=== PATIENT | female | born 1975 | race Caucasian/White ===

== ENCOUNTER 2025-08-14 09:30 | Outpatient (AMB) | payer BC, SELFPAY ==
--- NOTE | 2025-08-14 09:37 | A.OFFVIS_ITS ---
Intake Visit Reasons: follow up Allergies No Known Allergies Allergy (Unverified 06/13/20 16:33) Medication List - Last Reconciled 08/14/25 by Tony Menjivar MD lorazepam 1 mg PO BEDTIME PRN 30 days ondansetron 4 mg PO Q8H PRN phentermine 37.5 mg PO DAILY rosuvastatin 10 mg PO DAILY spironolactone 100 mg PO QAM topiramate 50 mg PO BID 90 days zolpidem 10 mg PO BEDTIME PRN 30 days HPI Comments Details: %1 yr old woman with migraines, here for 6 monthly f/u. Migraines are under control. Usually triggered by too much stress and lack of sleep. Is now on Rosuvastatin. Undergoing w/u for kidneys and rheumatological w/u for abnormal labs and is very stressed about it. Not sleeping well. Had left knee meniscectomy on 04/25/24. Stage 4 arthritis. Seeing a therapist with her boyfriend. Shoulders and upper neck and back are sore and using a chiropractor. She tore her rotator cuffs and had rotator cuff surgery on the left in May 2020 and right on 09/10/20. Sleeping problems are better. 1-2 migraines / month, de pending upon stress and lack of sleep. Controlled in 1 hr with Excedrin migraine. No side effects. She has a history of migraine headaches that started in high school. They usually triggered by stress or bright lights. It is described as a generalized pressure in the head with nausea without vomiting as well as photophobia but can last for several hours. Rarely she's had to leave work because of the light sensitivity. She usually treats it by taking 2 Excedrin. She gets 5-6 hours of sleep and has a very busy schedule. [facility] Medical History (Updated 08/14/25 @ 09:41 by Tony Menjivar MD) Insomnia Mood disorder Anxiety Asthma Migraine Review of Systems Const Details: Sleep:Difficulty getting to sleepadmits.? Difficulty maintaining sleepadmits.? Urge to move legsdenies.? Teeth grindingdenies.? Shouting or Kicking during sleepdenies.? Abnormal behavior during sleepdenies.? Excessive sleepdenies.? Snoringdenies.? Daytime sleepinessdenies.General/Constitutional:Change in appetitedenies.? Chillsdenies.? Fatiguedenies.? Feverdenies.? Weight gainadmits .? Weight lossdenies.Ophthalmologic:Blurred visiondenies.? Diminished visual acuitydenies.ENT:Stuffinessdenies.? Decreased hearingdenies.? Dry mouthdenies.? Ear paindenies.? Nosebleeddenies.? Ringing in the earsdenies.? Sinus paindenies .? Sore throatdenies.? Swollen glandsdenies.Endocrine:Cold intolerancedenies.? Excessive thirstdenies.? Frequent urinationdenies.? Heat intolerancedenies. Respiratory:Shortness of breathdenies.? Chest paindenies.? Coughdenies.Breast :Breast lumpdenies.? Nipple dischargedenies.Cardiovascular:Chest pain at rest denies.? Chest pain with exertiondenies.? Claudicationdenies.? Dizzinessdenies.? Fluid accumulation in the legsdenies.? Irregular heartbeatdenies.? Palpitations denies.Gastrointestinal:Abdominal paindenies.? Constipationdenies.? Diarrhea denies.? Difficulty swallowingdenies.? Heartburndenies.? Nauseadenies.? Rectal bleedingdenies.Hematology:Easy bruisingdenies.? Prolonged bleedingdenies. Genitourinary:Frequent urinationdenies.? Urgencydenies.? Incontinencedenies.? Erectile Dysfunctiondenies.Musculoskeletal:Neck paindenies.? Back paindenies.? Muscle achesdenies.? Painful jointsdenies.? Sciaticadenies.? Weaknessdenies. Podiatric:Difficulty walkingdenies.? Foot numbnessdenies.Neurologic:Difficulty swallowingdenies.? Balance difficultydenies.? Coordinationnormal.? Difficulty speakingdenies.? Dizzinessdenies.? Faintingdenies.? Gait abnormalitydenies.? Headacheadmits.? Loss of strengthdenies.? Loss of use of extremitydenies.? Low back paindenies.? Memory lossdenies.? Seizuresdenies.? Ticsdenies.? Tingling /Numbnessdenies.? Transient loss of visiondenies.? Tremordenies.Psychiatric :Anxietyadmits.? Auditory/visual hallucinationsdenies.? Delusionsdenies.? Depressed mooddenies.? Stressorsadmits.? Substance abusedenies.? Suicidal thoughtsdenie Physical Exam Neuro Other: Neurological: Abnormal neurological findings:??none.?Mental Status:??alert and oriented X 3,?Normal attention, orientation, memory and affect.?Cranial Nerves:??Pupils are equal, round and reactive to light. Fundoscopy shows normal disc bilaterally. External occular muscles are intact. Visual morales are full, no ptosis. Face is symmetrical, no facial weakness or droop. Facial sensations are normal. Tongue protrudes in midline. Palate elevates symmetrically. Shoulder shrugging is normal..?Motor Examination:??Normal muscle tone, bulk and strength,?No atrophy or fasciculations,?No drift of the extended upper extremities,?Deep tendon reflexes are 2+?,?Plantars are flexor?.?Motor Strength:?Proximal Muscles (out of 5):5Distal Muscles (out of 5):5Neck Flexors (out of 5):5Neck Extensors (out of 5):5Deltoid (out of 5):5Biceps (out of 5):5Triceps (out of 5):5Serratus Anterior (out of 5):5Wrist Extensors (out of 5):5APB (out of 5):5Finger Spread (out of 5):5Ileopsoas (out of 5):5Quadriceps (out of 5):5Hamstrings (out of 5):5Tibialis Anterior (out of 5):5Peronei (out of 5):5EDB (out of 5):5Gastrocnemius (out of 5):5Straight Leg Raising:??90 degrees.?Sensory Exam:??Normal light touch, temperature, pinprick, vibration and joint-position sensations?,?Rhomberg sign is absent.?Coordination:??no ataxia,?no titubation,?[id number], vabg-cifo-[id number] test and rapid alternating movements were normal.?Gait Exam:??Within normal limits.?Cerebellar Signs:??[id number] and [id number] is normal,?no dysdiadochokinesia?.?Extrapyramidal System:??No tremor, rigidity with normal facial expressions,?No bradykinesia, no bradyphrenia. Normal arm swing and posture. No propulsion or retropulsion.?Speech:??Normal,?no dysphasia or dysarthria..? Mini Mental Status Exam: Level of Consciousness:??Alert.?Orientation:??Knows correct year, month, date, day and season,?Knows correct city, county and state. Knows correct location and floor.?Registration:??Able to register 3 objects.?Attention:??Serial 7's performed accurately.?Recall:??Able to recall 3 out of 3 objects.?Jarred guage:??Normal spontaneous speech, fluency, repetition,naming, comprehension, reading and writing.?Total Score:??.? Assessment & Plan Assessment & Plan (1) Migraine: Code(s): G43.909 - Migraine, unspecified, not intractable, without status migrainosus Category: Medical (2) Mood disorder: Code(s): F39 - Unspecified mood [affective] disorder Category: Medical (3) Insomnia: Code(s): G47.00 - Insomnia, unspecified Category: Medical Plan Continue current meds. Medications: Refilled zolpidem 10 mg PO BEDTIME PRN 30 tabs 4RF sleep 30 days Coding Level of Care Code Est Pt Level 4 (35628) Diagnoses Migraine G43.909 Mood disorder F39 Insomnia G47.00
== END 2025-08-14 10:00 | disposition home or self-care (01) ==
PROVIDERS: PCP Internal Medicine; Visit Provider Psychiatry & Neurology Neurology
DX: G43.909 Migraine, unspecified, not intractable, without status migrainosus (principal); F39 Unspecified mood [affective] disorder; G47.00 Insomnia, unspecified
CPT/HCPCS: 99214